=== PATIENT | male | born 1945 | race Caucasian/White ===

== ENCOUNTER 2022-06-18 05:54 | Inpatient (IN) | payer OTHER ==
[2022-06-12 10:54] VITALS: BMI 23.8
[2022-06-18] MEDS ORDERED: ONDANSETRON 4 MG/2 ML VIAL ONE (06:56)
[2022-06-18] MEDS ORDERED: DEXAMETHASONE SOD PHOSPHATE 4 MG/1 ML VIAL ONE (06:56)
[2022-06-18] MEDS ORDERED: KETOROLAC TROMETHAMINE 30 MG/1 ML VIAL ONE (06:56)
[2022-06-18] MEDS ORDERED: PROPOFOL 60 ML ONE (06:56)
[2022-06-18] MEDS ORDERED: MIDAZOLAM HCL 2 MG/2 ML SINGLE DOSE VIAL ONE (06:57)
[2022-06-18] MEDS ORDERED: ACETAMINOPHEN INJECTION 100 ML IVPB ONE (07:05)
[2022-06-18] MEDS ORDERED: BUPIVACAINE HCL/PF 0.5% (5MG/ML) 10 ML VIAL ONE ×2 (07:05→07:23)
[2022-06-18] MEDS ORDERED: BUPIVACAINE LIPOSOME/PF (EXPAREL) 266 MG/20 ML VIAL ONE (07:05)
[2022-06-18] MEDS ORDERED: PHENYLEPHRINE HCL 10 MG/1 ML SINGLE DOSE VIAL ONE (07:06)
[2022-06-18] MEDS ORDERED: VANCOMYCIN 1,000 MG VIAL (RESTRICTED TO ID ONLY) ONE (07:16)
[2022-06-18] MEDS ORDERED: DEXAMETHASONE SOD PHOSPHATE 10 MG/1 ML VIAL ONE (07:23)
[2022-06-18] MEDS ORDERED: CLINDAMYCIN 600MG PREMIX IVPB 600 MG/50 ML BAG IVPB ONE (08:32)
[2022-06-18] MEDS ORDERED: TRANEXAMIC ACID 1000 MG/10 ML VIAL ONE ×2 (08:50)
[2022-06-18] MEDS ORDERED: BUPIVICAINE 0.25%/MORPH PF/KETOROLAC - 51ML DISP.SYRINGE IA ONE (09:44)
[2022-06-18] MEDS ORDERED: PROPOFOL 20 ML ONE (10:17)
[2022-06-18] MEDS ORDERED: ONDANSETRON 4 MG/2 ML VIAL IVPUSH PRN (10:54)
[2022-06-18] MEDS ORDERED: MAG HYDROX/AL HYDROX/SIMETH 30 ML UNIT-DOSE CUP PO PRN (10:54)
[2022-06-18] MEDS ORDERED: LACTATED RINGERS SOLUTION 1,000 ML IV SCH (11:00)
[2022-06-18] MEDS ORDERED: IBUPROFEN 800 MG/8 ML IJ IVPB PRN (11:08)
[2022-06-18] MEDS ORDERED: ACETAMINOPHEN 325 MG TABLET (FP) PO PRN (11:08)
[2022-06-18] MEDS ORDERED: VANCOMYCIN 1 GM in D5W (PRE-DOCKED) 1,000 MG/250 ML IVPB ONE (12:00)
[2022-06-18] MEDS ORDERED: TRANEXAMIC ACID 1000 MG/10 ML VIAL IVPUSH ONE (13:00)
[2022-06-18] MEDS: CLINDAMYCIN 600MG PREMIX IVPB 600 MG/50 ML BAG IVPB SCH (17:46)
[2022-06-18] MEDS ORDERED: VANCOMYCIN 1 GRAM (PRE-DOCKED) 1 GM/250 ML BAG IVPB ONE ×2 (20:00→22:30)
[2022-06-18] MEDS: ASCORBIC ACID 500 MG TABLET (FP) PO SCH (22:28)
[2022-06-18] MEDS: SENNOSIDES/DOCUSATE COMBO (SENNA PLUS) TABLET (UD) PO SCH (22:28)
[2022-06-18] MEDS: GABAPENTIN 300 MG CAPSULE PO SCH (22:28)
[2022-06-19] MEDS: CLINDAMYCIN 600MG PREMIX IVPB 600 MG/50 ML BAG IVPB SCH ×2 (02:43→10:29)
[2022-06-19 08:19] LABS: HEMATOCRIT 27.3 % (35.4-49); HEMOGLOBIN 9.5 G/dL (11.7-16.9); MCH 30.8 pg (25.7-33.7); MCHC 34.9 g/dl (32.0-35.9); MEAN CELL VOLUME 88.5 fl (80-96); MEAN PLT VOLUME 11.5 fl (7.5-11.1); PLATELET COUNT 103.1 10^3/uL (134-434); RBC 3.09 10^6/uL (4.00-5.60); RDW 13.8 % (11.9-15.9); WHITE BLOOD COUNT 15.1 10^3/uL (4.0-10.8)
[2022-06-19 08:21] LABS: CALCIUM 8.3 mg/dl (8.5-10); CREATININE 0.8 mg/dl (0.55-1.3)
[2022-06-19 08:34] VITALS: RESP 20
[2022-06-19] MEDS ORDERED: TIMOLOL MALEATE 0.5% GFS OPHTHALMIC SOLN 5 ML BOTTLE OS SCH (10:00)
[2022-06-19] MEDS ORDERED: PANTOPRAZOLE 40 MG TABLET PO SCH (10:00)
[2022-06-19] MEDS ORDERED: LISINOPRIL 20 MG TABLET PO SCH (10:00)
[2022-06-19] MEDS ORDERED: EZETIMIBE 10 MG TABLET (FP) PO SCH (10:00)
[2022-06-19] MEDS ORDERED: CHOLECALCIFEROL (VIT D3 5000 UNITS) 125 MCG TAB PO SCH (10:00)
[2022-06-19] MEDS ORDERED: MULTIVITAMINS (DAILY MVI) TABLET (FP) PO SCH (10:00)
[2022-06-19] MEDS ORDERED: ASPIRIN 325 MG TABLET PO SCH (10:00)
[2022-06-19] MEDS ORDERED: PATIENT'S OWN MEDICATION (NON-FORMULARY) (Lisinopril [Zestril] 40 MG Tablet) PO SCH (10:00)
[2022-06-19] MEDS ORDERED: amLODIPine BESYLATE 10 MG TABLET (FP) PO SCH (10:00)
[2022-06-19] MEDS ORDERED: CHLORTHALIDONE 25 MG TABLET PO SCH (10:00)
[2022-06-19] MEDS ORDERED: ACETAMINOPHEN 500 MG TABLET (FP) PO SCH (10:45)
[2022-06-19] MEDS: ASCORBIC ACID 500 MG TABLET (FP) PO SCH (10:50)
[2022-06-19] MEDS: GABAPENTIN 300 MG CAPSULE PO SCH (10:51)
[2022-06-19] MEDS: SENNOSIDES/DOCUSATE COMBO (SENNA PLUS) TABLET (UD) PO SCH (10:52)
[2022-06-19] MEDS: PATIENT'S OWN MEDICATION (NON-FORMULARY) (Ascorbate Calcium [Vitamin C] 500 MG Tablet) PO SCH ×2 (11:02→11:03)
[2022-06-19 14:02] VITALS: BP 126/63; PULSE 71; TEMP 98.6
[2022-06-19] MEDS ORDERED: ROSUVASTATIN CA 10 MG TABLET PO SCH (22:00)
== END 2022-06-19 15:03 | disposition home or self-care (01) | DRG 470 ==
LOC: SUATTDRO 05:54 → FASUSAT 05:54 → FM/S 06:37 → FASUSAT 06-19 05:55 → FM/S 06-19 05:55
PROVIDERS: ADMIT Internal Medicine; ATTEND Orthopaedic Surgery Sports Medicine
PROC: 8E0Y0CZ Robotic Assisted Procedure of Lower Extremity, Open Approach (ICD-10-PCS; 2022-06-18)
PROC: 0SRC0J9 Replacement of Right Knee Joint with Synthetic Substitute, Cemented, Open Approach (ICD-10-PCS; principal; 2022-06-18 08:53)
DX: M17.11 Unilateral primary osteoarthritis, right knee (principal); I10 Essential (primary) hypertension; I25.10 Atherosclerotic heart disease of native coronary artery without angina pectoris; E78.5 Hyperlipidemia, unspecified; Z95.1 Presence of aortocoronary bypass graft
CPT/HCPCS: 36415; 73560-TC-RT-FY; 80048; 85027; 88305-TC; 88311-TC; 94760; 97010-GP; 97116-GP; 97162-GP; C1776; C1889; J1100

== ENCOUNTER 2022-06-20 12:14 | Observation (INO) | payer OTHER ==
[2022-06-20 13:17] VITALS: RESP 18; BMI 23.7
[2022-06-20] MEDS ORDERED: SODIUM CHLORIDE 0.9% 500 ML INFUS.BAG IV ONE ×2 (14:00→16:05)
[2022-06-20 14:44] LABS: BASO % 0.1 % (0-2.0); EOS % 0.8 % (0-4.5); HEMATOCRIT 28.7 % (35.4-49); HEMOGLOBIN 9.7 GM/dL (11.7-16.9); LYMPH % 6.8 % (8-40); MCH 29.9 pg (25.7-33.7); MCHC 33.9 g/dl (32.0-35.9); MEAN CELL VOLUME 88.2 fl (80-96); MEAN PLT VOLUME 11.5 fl (7.5-11.1); MONO % 6.9 % (3.8-10.2); NEUT % 85.4 % (42.8-82.8); PLATELET COUNT 124 10^3/uL (134-434); RBC 3.26 M/mm3 (4.00-5.60); RDW 13.4 % (11.9-15.9); WHITE BLOOD COUNT 12.4 K/mm3 (4.0-10.0)
[2022-06-20 15:02] LABS: CALCIUM 8.8 mg/dL (8.5-10.1)
[2022-06-20 15:03] LABS: ALBUMIN 3.2 g/dl (3.4-5.0); BLOOD UREA NITROGEN 21.1 mg/dL (7-18); MAGNESIUM 2.2 mg/dL (1.8-2.4)
[2022-06-20 15:06] LABS: CREATININE 1.5 mg/dL (0.55-1.3); PHOSPHOROUS 4.7 mg/dL (2.5-4.9)
[2022-06-20 15:08] LABS: BILIRUBIN,TOTAL 0.8 mg/dL (0.2-1); TOT PROT 6.1 g/dl (6.4-8.2)
[2022-06-20 17:15] LABS: URINE APPEARANCE CLEAR; URINE BILIRUBIN NEGATIVE (NEGATIVE); URINE COLOR YELLOW; URINE GLUCOSE (UA) NEGATIVE (NEGATIVE); URINE KETONE NEGATIVE (NEGATIVE); URINE LEUK ESTERASE NEGATIVE (NEGATIVE); URINE NITRITE NEGATIVE (NEGATIVE); URINE PROTEIN NEGATIVE (NEGATIVE); URINE UROBILINOGEN 0.2 mg/dL (0.2-1.0)
[2022-06-20] MEDS ORDERED: SENNOSIDES/DOCUSATE COMBO (SENNA PLUS) TABLET (UD) PO PRN (17:20)
[2022-06-20] MEDS ORDERED: ACETAMINOPHEN 325 MG TABLET (FP) PO PRN (17:22)
[2022-06-20] MEDS ORDERED: ACETAMINOPHEN 1000 MG/100 ML BAG IVPB PRN (17:24)
[2022-06-20] MEDS ORDERED: ASCORBIC ACID 500 MG TABLET (FP) ONE (22:55)
[2022-06-20] MEDS ORDERED: ASPIRIN 325 MG TABLET ONE (22:56)
[2022-06-20] MEDS ORDERED: GABAPENTIN 300 MG CAPSULE ONE (22:56)
[2022-06-20] MEDS: ASPIRIN 325 MG TABLET PO SCH (23:19)
[2022-06-20] MEDS: GABAPENTIN 300 MG CAPSULE PO SCH (23:19)
[2022-06-20] MEDS: ASCORBIC ACID 500 MG TABLET (FP) PO SCH (23:19)
[2022-06-21] MEDS: ASCORBIC ACID 500 MG TABLET (FP) PO SCH ×2 (06:02→14:30)
[2022-06-21 08:38] VITALS: BP 104/58; PULSE 82; TEMP 98.3
[2022-06-21 09:11] LABS: BASO % 0.2 % (0-2.0); EOS % 2.4 % (0-4.5); HEMATOCRIT 23.6 % (35.4-49); HEMOGLOBIN 8.3 GM/dL (11.7-16.9); LYMPH % 6.7 % (8-40); MCH 30.7 pg (25.7-33.7); MCHC 35.3 g/dl (32.0-35.9); MEAN PLT VOLUME 11.3 fl (7.5-11.1); MONO % 3.8 % (3.8-10.2); NEUT % 86.9 % (42.8-82.8); PLATELET COUNT 107 10^3/uL (134-434); RBC 2.72 M/mm3 (4.00-5.60); RDW 13.6 % (11.9-15.9); WHITE BLOOD COUNT 10.2 K/mm3 (4.0-10.0)
[2022-06-21] MEDS: ASPIRIN 325 MG TABLET PO SCH (09:30)
[2022-06-21] MEDS: GABAPENTIN 300 MG CAPSULE PO SCH (09:30)
[2022-06-21] MEDS ORDERED: TIMOLOL MALEATE 0.5% GFS OPHTHALMIC SOLN 5 ML BOTTLE OS SCH (10:00)
[2022-06-21] MEDS ORDERED: ROSUVASTATIN CA 10 MG TABLET PO SCH (10:00)
[2022-06-21] MEDS ORDERED: EZETIMIBE 10 MG TABLET (FP) PO SCH (10:00)
[2022-06-21] MEDS ORDERED: LISINOPRIL 20 MG TABLET PO SCH (10:00)
[2022-06-21] MEDS ORDERED: METOPROLOL TARTRATE 50 MG TABLET (FP) PO SCH (10:00)
[2022-06-21] MEDS ORDERED: MULTIVITAMINS (DAILY MVI) TABLET (FP) PO SCH (10:00)
[2022-06-21] MEDS ORDERED: CHOLECALCIFEROL (VIT D3 5000 UNITS) 125 MCG TAB PO SCH ×2 (10:00)
[2022-06-21] MEDS ORDERED: amLODIPine BESYLATE 10 MG TABLET (FP) PO SCH (10:00)
[2022-06-21] MEDS ORDERED: CHLORTHALIDONE 25 MG TABLET PO SCH (10:00)
[2022-06-21 10:23] LABS: CALCIUM 8.3 mg/dL (8.5-10.1)
[2022-06-21 10:24] LABS: ALBUMIN 2.8 g/dl (3.4-5.0); BLOOD UREA NITROGEN 13.7 mg/dL (7-18)
[2022-06-21 10:29] LABS: BILIRUBIN,TOTAL 0.9 mg/dL (0.2-1); TOT PROT 5.5 g/dl (6.4-8.2)
== END 2022-06-21 16:24 | disposition home or self-care (01) ==
LOC: JER 12:14 → JERBED 16:34 → INTOOBSV 16:34 → J6S 06-21 01:19
PROVIDERS: ADMIT Internal Medicine; ATTEND Internal Medicine
PROC: 3E0337Z Introduction of Electrolytic and Water Balance Substance into Peripheral Vein, Percutaneous Approach (ICD-10-PCS; principal; 2022-06-20)
DX: N17.9 Acute kidney failure, unspecified (principal); E87.1 Hypo-osmolality and hyponatremia; D62 Acute posthemorrhagic anemia; Z88.8 Allergy status to other drugs, medicaments and biological substances; I25.10 Atherosclerotic heart disease of native coronary artery without angina pectoris; I11.9 Hypertensive heart disease without heart failure; Z95.1 Presence of aortocoronary bypass graft; Z87.891 Personal history of nicotine dependence; D72.89 Other specified disorders of white blood cells; W18.39XA Other fall on same level, initial encounter; Y93.89 Activity, other specified; Y92.89 Other specified places as the place of occurrence of the external cause; Z88.0 Allergy status to penicillin; Z88.5 Allergy status to narcotic agent
CPT/HCPCS: 0241U-QW; 36415; 70450-TC; 73562-TC-RT-FY; 80053; 81003; 82272; 83735; 84100; 85025; 86850; 86900; 86901; 87045; 87046; 87086; 87324; 87449; 93005; 93010; 96360; 99285-25; G0378